=== PATIENT | female | born 1990 | race Caucasian/White ===

== ENCOUNTER 2017-07-09 19:02 | Emergency (ER) | payer OTHER ==
[~2017-07-09] VITALS: Ht 172.7 cm; Wt 158.8 kg
[~2017-07-09 19:02] MED LIST: AMOX875 PO; Adult Low Dose81 MG PO; BENMENLOZ MT; Bactrim Ds Tab1 EACH PO; CALCA500CH PO; CEPH500 PO; COUMADIN PO; Cleocin HCl300 MG PO; Coumadin5 MG PO; DOC250 PO; DULO30 PO; ELIQUIS5 MG PO; ENOX120I SC; ERGO50000 PO; FAMO20 PO; GABA100 PO; HYDCOR1TO TOP; IMPLANON SQ; Keppra1000 MG PO; LAVAP17G PO; LEVE500 PO; LIDO2L MM; Lamictal100 MG PO; Lovenox40 MG/0.4 SC; MAGCIT300 PO; MORP15ER PO; MORPHINE SULFAT20 MG PO; Mapap500 M1 PO; NEOPOLHCSU RIGHTEAR; Norco 5-325 Ta1 EACH PO; ONDA8 PO; OXYC10ER PO; OXYC5 PO; Percocet 5-3251 EACH PO; RAME8 PO; SENN187 PO; Senna-Gen8.6 MG PO; TOPI100 PO; WARF7.5 PO; Zofran4 MG PO; Zofran8 MG PO; [UNRECOGNIZED DRUG - OTHER] PO; [UNRECOGNIZED DRUG - REMARK]
[2017-07-09] MEDS ORDERED: BUPR75 (20:03)
[2017-07-09] MEDS ORDERED: Metformin HCl850 MG PO (20:04)
[2017-07-09] MEDS ORDERED: Women's Daily1 EACH PO (20:04)
[2018-02-01] MEDS ORDERED: Percocet 5-3251 EACH PO (04:59)
[2018-02-03] MEDS ORDERED: SERT100 PO (17:04)
[2018-02-04] MEDS ORDERED: METPHE10 PO (11:56)
[2018-02-04] MEDS ORDERED: HYDHCL25 PO (11:56)
[2018-02-04] MEDS ORDERED: CLON.1 PO (12:05)
[2018-02-04] MEDS ORDERED: PRAZ1 PO (12:06)
[2018-02-07] MEDS ORDERED: DOCU100 PO (10:05)
== END 2017-07-09 22:21 | disposition home or self-care (01) ==
LOC: ER 19:02
DX: S30.0XXA Contusion of lower back and pelvis, initial encounter (principal); M53.3 Sacrococcygeal disorders, not elsewhere classified; F32.9 Major depressive disorder, single episode, unspecified; Z88.8 Allergy status to other drugs, medicaments and biological substances; Z79.899 Other long term (current) drug therapy; W01.0XXA Fall on same level from slipping, tripping and stumbling without subsequent striking against object, initial encounter
CPT/HCPCS: 72170; 72220; 99283

== ENCOUNTER 2018-01-18 23:51 | Emergency (ER) | payer OTHER ==
[~2018-01-18] VITALS: Ht 172.7 cm; Wt 155.6 kg
[~2018-01-18 23:51] MED LIST changes: +BUPR75; +METF500; +Women's Daily1 EACH PO
[2018-01-19 00:41] LABS: BASOPHILS ABSOLUTE AUTO 0.05 K/mm3 (0.00-0.23); BASOPHILS PERCENT AUTO 0 % (0-2); EOSINOPHILS ABSOLUTE AUTO 0.37 K/mm3 (0.00-0.68); EOSINOPHILS PERCENT AUTO 2 % (0-6); Hematocrit 40.5 % (33.0-51.0); Hemoglobin 12.8 g/dL (11.5-16.0); IMMATURE GRAN ABSOLUTE AUTO 0.08 K/mm3 (0.00-0.10); IMMATURE GRAN PERCENT AUTO 0 % (0-1); LYMPHOCYTES PERCENT AUTO 16 % (21-46); MONOCYTES ABSOLUTE AUTO 0.95 K/mm3 (0.16-1.47); MONOCYTES PERCENT AUTO 5 % (4-13); Mean Corpuscular HGB 26.4 pg (26.0-34.0); Mean Corpuscular HGB Conc 31.6 g/dL (31.5-36.5); Mean Corpuscular Volume 84 fL (80-100); Mean Platelet Volume 8.8 fL (9.1-12.4); NEUTROPHILS ABSOLUTE AUTO 14.12 K/mm3 (1.96-9.15); NEUTROPHILS PERCENT AUTO 76 % (41-73); Platelet Count 328 K/mm3 (150-400); RDW Coefficient Variation 14.7 % (11.7-14.2); RDW Standard Deviation 44.8 fL (35.1-46.3); Red Blood Cell Count 4.85 M/mm3 (3.80-5.20); White Blood Cell Count 18.57 K/mm3 (4.00-11.30)
[2018-01-19 00:55] LABS: International Normalized Ratio 0.91; Prothrombin Time Results 9.4 Sec (9.7-11.5)
[2018-01-19 01:01] LABS: Alanine Aminotransfer (ALT/SGP 25 U/L (12-78); Albumin, Blood 3.4 g/dL (3.4-5.0); Albumin/Globulin Ratio 0.9 (0.8-1.8); Alk Phos 106 U/L (50-136); Anion Gap 10 mmol/L (6-16); Aspartate Aminotrans (AST/SGOT 13 U/L (12-37); Bilirubin, Total 0.2 mg/dL (0.1-1.0); Blood Urea Nitrogen 13 mg/dL (8-24); Bun/Creatinine Ratio 18.4 (12.0-20.0); CO2, Blood 23 mmol/L (21-32); Calcium, Blood 8.6 mg/dL (8.5-10.1); Chloride, Blood 107 mmol/L (98-108); Creatinine, Blood 0.71 mg/dL (0.40-1.00); Globulin, Blood 3.9 g/dL (2.2-4.0); Glomerular Filtration Rate >60 (60-); Glucose, Blood 166 mg/dL (70-99); Potassium, Blood 3.8 mmol/L (3.5-5.5); Sodium, Blood 140 mmol/L (136-145); Total Protein, Blood 7.3 g/dL (6.4-8.2)
[2018-01-19 05:25] LABS: Source, Urine Catheter
[2018-01-19 05:32] LABS: Bilirubin, Urine Neg (Neg); Blood, Urine 5+ (Neg); Glucose Qualitative, Urine Neg (Neg); Ketones, Urine Neg (Neg); Leukocyte Esterase, Urine 1+ (Neg); Nitrite, Urine Neg (Neg); Protein, Urine Neg (Neg); Specific Gravity, Urine 1.015 (1.003-1.022); Urobilinogen, Urine NORM (Normal)
[2018-01-19 05:44] LABS: Amorphous Light (0-Heavy); Appearance, Urine Hazy (Clear); Bacteria Few /hpf; Color, Urine Yellow (P-Yellow); Red Blood Cells, Urine 50-100 /hpf (0-2); Squamous Epithelial Cells Few /hpf (Few)
[2018-01-19] MEDS ORDERED: Percocet 10-321 EACH PO (08:01)
[2018-01-19] MEDS ORDERED: Flomax0.4 MG PO (08:01)
== END 2018-01-19 08:20 | disposition home or self-care (01) ==
LOC: ER 23:51
PROVIDERS: Emergency Medicine
DX: R10.30 Lower abdominal pain, unspecified (principal); R06.02 Shortness of breath; R31.9 Hematuria, unspecified; D72.829 Elevated white blood cell count, unspecified; F17.210 Nicotine dependence, cigarettes, uncomplicated; Z88.7 Allergy status to serum and vaccine; Z88.8 Allergy status to other drugs, medicaments and biological substances; Z79.899 Other long term (current) drug therapy
CPT/HCPCS: 36415; 51798; 71046; 74176; 80053; 81001; 81025; 83690; 84484; 85025; 85379; 85610; 85730; 87086; 93005; 93010; 96361; 96374; 96375; 96376; 99284-25; J1170; J1885; J2060; J2405; J2550; J7030; P9612

== ENCOUNTER 2018-05-01 12:35 | Emergency (ER) | payer OTHER ==
[~2018-05-01] VITALS: Ht 172.7 cm; Wt 163.3 kg
[~2018-05-01 12:35] MED LIST changes: +CLON.1 PO; +DOCU100 PO; +Flomax0.4 MG PO; +HYDHCL25 PO; -METF500; +METPHE10 PO; +Metformin HCl850 MG PO; +PRAZ1 PO; +Percocet 10-321 EACH PO; +SERT100 PO
[2018-05-01 15:29] LABS: BASOPHILS ABSOLUTE AUTO 0.04 K/mm3 (0.00-0.23); BASOPHILS PERCENT AUTO 0 % (0-2); EOSINOPHILS ABSOLUTE AUTO 0.18 K/mm3 (0.00-0.68); EOSINOPHILS PERCENT AUTO 2 % (0-6); Hematocrit 42.3 % (33.0-51.0); Hemoglobin 13.1 g/dL (11.5-16.0); IMMATURE GRAN ABSOLUTE AUTO 0.02 K/mm3 (0.00-0.10); IMMATURE GRAN PERCENT AUTO 0 % (0-1); LYMPHOCYTES ABSOLUTE AUTO 2.31 K/mm3 (0.84-5.20); LYMPHOCYTES PERCENT AUTO 21 % (21-46); MONOCYTES ABSOLUTE AUTO 0.49 K/mm3 (0.16-1.47); MONOCYTES PERCENT AUTO 5 % (4-13); Mean Corpuscular HGB 25.7 pg (26.0-34.0); Mean Corpuscular Volume 83 fL (80-100); Mean Platelet Volume 9.5 fL (9.1-12.4); NEUTROPHILS ABSOLUTE AUTO 7.78 K/mm3 (1.96-9.15); NEUTROPHILS PERCENT AUTO 72 % (41-73); Platelet Count 361 K/mm3 (150-400); RDW Coefficient Variation 14.7 % (11.7-14.2); RDW Standard Deviation 44.1 fL (35.1-46.3); White Blood Cell Count 10.82 K/mm3 (4.00-11.30)
[2018-05-01 15:46] LABS: Alanine Aminotransfer (ALT/SGP 53 U/L (12-78); Albumin, Blood 3.6 g/dL (3.4-5.0); Alk Phos 100 U/L (50-136); Anion Gap 8 mmol/L (6-16); Aspartate Aminotrans (AST/SGOT 26 U/L (12-37); Bilirubin, Total 0.2 mg/dL (0.1-1.0); Blood Urea Nitrogen 7 mg/dL (8-24); Bun/Creatinine Ratio 9.3 (12.0-20.0); CO2, Blood 25 mmol/L (21-32); Chloride, Blood 110 mmol/L (98-108); Creatinine, Blood 0.76 mg/dL (0.40-1.00); Globulin, Blood 3.7 g/dL (2.2-4.0); Glomerular Filtration Rate >60 (60-); Glucose, Blood 138 mg/dL (70-99); Potassium, Blood 3.7 mmol/L (3.5-5.5); Sodium, Blood 143 mmol/L (136-145); Total Protein, Blood 7.3 g/dL (6.4-8.2)
[2018-05-01 16:23] LABS: Source, Urine Clean Catch
[2018-05-01 16:27] LABS: Bilirubin, Urine Neg (Neg); Blood, Urine 5+ (Neg); Glucose Qualitative, Urine Neg (Neg); Ketones, Urine Neg (Neg); Leukocyte Esterase, Urine 2+ (Neg); Nitrite, Urine Neg (Neg); Protein, Urine 1+ (Neg); Specific Gravity, Urine 1.025 (1.003-1.022); Urobilinogen, Urine 1+ (Normal)
[2018-05-01 17:04] LABS: Appearance, Urine Clear (Clear); Color, Urine Yellow (P-Yellow)
[2018-05-01 17:05] LABS: Calcium Oxalate Crystals Few /hpf; Squamous Epithelial Cells Few /hpf (Few)
[2018-05-01 17:06] LABS: Bacteria Mod /hpf; Red Blood Cells, Urine 25-50 /hpf (0-2)
[2018-05-01] MEDS ORDERED: Norco 5-325 Ta1 EACH PO (17:32)
[2018-05-01] MEDS ORDERED: COMPAZINE10 MG PO (17:32)
== END 2018-05-01 17:49 | disposition home or self-care (01) ==
LOC: ER 12:35
PROVIDERS: Emergency Medicine
DX: N13.2 Hydronephrosis with renal and ureteral calculous obstruction (principal); K21.9 Gastro-esophageal reflux disease without esophagitis; E11.9 Type 2 diabetes mellitus without complications; E66.01 Morbid (severe) obesity due to excess calories; F17.210 Nicotine dependence, cigarettes, uncomplicated; Z79.899 Other long term (current) drug therapy; Z79.84 Long term (current) use of oral hypoglycemic drugs
CPT/HCPCS: 36415; 51798; 74176; 80053; 81001; 81025; 85025; 87086; 96374; 96375; 96376; 99284-25; J1170; J2405

== ENCOUNTER 2018-05-20 19:44 | Emergency (ER) | payer OTHER ==
[~2018-05-20] VITALS: Ht 172.7 cm; Wt 155.4 kg
[~2018-05-20 19:44] MED LIST changes: +COMPAZINE10 MG PO
[2018-05-20] MEDS ORDERED: ERYT1OIN RIGHTEYE (23:19)
== END 2018-05-20 23:27 | disposition home or self-care (01) ==
LOC: ER 19:44
DX: H10.021 Other mucopurulent conjunctivitis, right eye (principal); F32.9 Major depressive disorder, single episode, unspecified; F17.210 Nicotine dependence, cigarettes, uncomplicated; Z79.899 Other long term (current) drug therapy; Z79.01 Long term (current) use of anticoagulants; Z79.84 Long term (current) use of oral hypoglycemic drugs; Z88.8 Allergy status to other drugs, medicaments and biological substances
CPT/HCPCS: 99283

== ENCOUNTER 2018-09-14 03:43 | Emergency (ER) | payer OTHER ==
[~2018-09-14] VITALS: Ht 172.7 cm; Wt 154.2 kg
[~2018-09-14 03:43] MED LIST changes: +ERYT1OIN RIGHTEYE
== END 2018-09-14 04:27 | disposition home or self-care (01) ==
LOC: ER 03:43
DX: F43.22 Adjustment disorder with anxiety (principal); R20.2 Paresthesia of skin; Z88.8 Allergy status to other drugs, medicaments and biological substances; Z88.7 Allergy status to serum and vaccine; Z79.899 Other long term (current) drug therapy; Z79.84 Long term (current) use of oral hypoglycemic drugs; F32.9 Major depressive disorder, single episode, unspecified; F17.210 Nicotine dependence, cigarettes, uncomplicated
CPT/HCPCS: 99283

== ENCOUNTER 2018-09-25 02:11 | Emergency (ER) | payer OTHER ==
[~2018-09-25] VITALS: Ht 172.7 cm; Wt 172.4 kg
[2018-09-25 05:31] LABS: BASOPHILS ABSOLUTE AUTO 0.04 K/mm3 (0.00-0.23); BASOPHILS PERCENT AUTO 0 % (0-2); EOSINOPHILS ABSOLUTE AUTO 0.13 K/mm3 (0.00-0.68); EOSINOPHILS PERCENT AUTO 1 % (0-6); Hematocrit 40.7 % (33.0-51.0); Hemoglobin 13.2 g/dL (11.5-16.0); IMMATURE GRAN ABSOLUTE AUTO 0.03 K/mm3 (0.00-0.10); IMMATURE GRAN PERCENT AUTO 0 % (0-1); LYMPHOCYTES ABSOLUTE AUTO 2.92 K/mm3 (0.84-5.20); LYMPHOCYTES PERCENT AUTO 24 % (21-46); MONOCYTES ABSOLUTE AUTO 0.51 K/mm3 (0.16-1.47); MONOCYTES PERCENT AUTO 4 % (4-13); Mean Corpuscular HGB 26.6 pg (26.0-34.0); Mean Corpuscular HGB Conc 32.4 g/dL (31.5-36.5); Mean Corpuscular Volume 82 fL (80-100); Mean Platelet Volume 8.9 fL (9.1-12.4); NEUTROPHILS ABSOLUTE AUTO 8.59 K/mm3 (1.96-9.15); NEUTROPHILS PERCENT AUTO 70 % (41-73); Platelet Count 287 K/mm3 (150-400); RDW Coefficient Variation 14.1 % (11.7-14.2); RDW Standard Deviation 41.4 fL (35.1-46.3); Red Blood Cell Count 4.97 M/mm3 (3.80-5.20); White Blood Cell Count 12.22 K/mm3 (4.00-11.30)
[2018-09-25 05:48] LABS: Alanine Aminotransfer (ALT/SGP 38 U/L (12-78); Albumin, Blood 3.6 g/dL (3.4-5.0); Alk Phos 98 U/L (50-136); Anion Gap 6 mmol/L (6-16); Aspartate Aminotrans (AST/SGOT 25 U/L (12-37); Bilirubin, Total 0.3 mg/dL (0.1-1.0); Blood Urea Nitrogen 5 mg/dL (8-24); Bun/Creatinine Ratio 7.9 (12.0-20.0); CO2, Blood 27 mmol/L (21-32); Calcium, Blood 8.7 mg/dL (8.5-10.1); Chloride, Blood 111 mmol/L (98-108); Creatinine, Blood 0.63 mg/dL (0.40-1.00); Globulin, Blood 3.7 g/dL (2.2-4.0); Glomerular Filtration Rate >60 (60-); Glucose, Blood 105 mg/dL (70-99); Sodium, Blood 144 mmol/L (136-145); Total Protein, Blood 7.3 g/dL (6.4-8.2)
== END 2018-09-25 06:29 | disposition home or self-care (01) ==
LOC: ER 02:11
PROVIDERS: Emergency Medicine
DX: K92.0 Hematemesis (principal); R52 Pain, unspecified; F41.9 Anxiety disorder, unspecified; F32.9 Major depressive disorder, single episode, unspecified; F17.210 Nicotine dependence, cigarettes, uncomplicated; Z88.7 Allergy status to serum and vaccine; Z88.8 Allergy status to other drugs, medicaments and biological substances; Z79.84 Long term (current) use of oral hypoglycemic drugs; Z79.899 Other long term (current) drug therapy
CPT/HCPCS: 36415; 80053; 82272; 83690; 85025; 96361; 96374; 96375; 99284-25; A9270; J1170; J2405; J7120

== ENCOUNTER → 2019-09-04 | Outpatient (CLI) | payer OTHER | END | disposition home or self-care (01) | LOC: LAB SHORT 16:39 → LAB 16:39 | PROVIDERS: Obstetrics & Gynecology | DX: Z01.419 Encounter for gynecological examination (general) (routine) without abnormal findings (principal) | CPT/HCPCS: G0123 ==

== ENCOUNTER 2021-10-08 23:08 | Emergency (ER) | payer OTHER ==
[~2021-10-08] VITALS: Ht 172.7 cm; Wt 145.2 kg
== END 2021-10-09 03:45 | disposition home or self-care (01) ==
LOC: ER 23:08
DX: R42 Dizziness and giddiness (principal); U07.1 COVID-19; R04.0 Epistaxis; F17.210 Nicotine dependence, cigarettes, uncomplicated; W18.30XA Fall on same level, unspecified, initial encounter; Z88.8 Allergy status to other drugs, medicaments and biological substances; Z79.899 Other long term (current) drug therapy; Z79.4 Long term (current) use of insulin; Z79.01 Long term (current) use of anticoagulants
CPT/HCPCS: 70450; 71045; 93005; 93010; 99285-25

== ENCOUNTER 2023-02-20 17:33 | Inpatient (IN) | payer OTHER ==
[~2023-02-20] VITALS: Ht 172.7 cm; Wt 148.2 kg
[~2023-02-20 17:33] MED LIST changes: -AMPDEX10CR PO; -CEFP200 PO; -LACT PO
[2023-02-20 18:20] LABS: BASOPHILS ABSOLUTE AUTO 0.08 K/mm3 (0.00-0.23); BASOPHILS PERCENT AUTO 0 % (0-2); EOSINOPHILS ABSOLUTE AUTO 0.04 K/mm3 (0.00-0.68); EOSINOPHILS PERCENT AUTO 0 % (0-6); Hematocrit 38.2 % (33.0-51.0); Hemoglobin 13.2 g/dL (11.5-16.0); IMMATURE GRAN ABSOLUTE AUTO 0.11 K/mm3 (0.00-0.10); IMMATURE GRAN PERCENT AUTO 1 % (0-1); LYMPHOCYTES ABSOLUTE AUTO 1.93 K/mm3 (0.84-5.20); LYMPHOCYTES PERCENT AUTO 9 % (21-46); MONOCYTES PERCENT AUTO 10 % (4-13); Mean Corpuscular HGB 28.8 pg (26.0-34.0); Mean Corpuscular HGB Conc 34.6 g/dL (31.5-36.5); Mean Corpuscular Volume 83 fL (80-100); Mean Platelet Volume 9.2 fL (9.1-12.4); NEUTROPHILS ABSOLUTE AUTO 17.91 K/mm3 (1.96-9.15); NEUTROPHILS PERCENT AUTO 80 % (41-73); Platelet Count 310 K/mm3 (150-400); RDW Coefficient Variation 12.7 % (11.7-14.2); RDW Standard Deviation 38.5 fL (35.1-46.3); Red Blood Cell Count 4.59 M/mm3 (3.80-5.20); White Blood Cell Count 22.27 K/mm3 (4.00-11.30)
[2023-02-20 18:28] LABS: Albumin, Blood 3.2 g/dL (3.4-5.0); Albumin/Globulin Ratio 0.7 (0.8-1.8); Bilirubin, Total 0.8 mg/dL (0.1-1.0); Bun/Creatinine Ratio 10.1 (12.0-20.0); Calcium, Blood 9.2 mg/dL (8.5-10.1); Creatinine, Blood 0.79 mg/dL (0.40-1.00); Globulin, Blood 4.5 g/dL (2.2-4.0); Potassium, Blood 3.9 mmol/L (3.5-5.5); Total Protein, Blood 7.7 g/dL (6.4-8.2)
[2023-02-20 20:09] LABS: Source, Urine Clean Catch
[2023-02-20 20:17] LABS: Bilirubin, Urine Neg (Neg); Blood, Urine 5+ (Neg); Glucose Qualitative, Urine Neg (Neg); Ketones, Urine 2+ (Neg); Leukocyte Esterase, Urine 3+ (Neg); Nitrite, Urine Pos (Neg); Protein, Urine 3+ (Neg); Urobilinogen, Urine NORM (Normal)
[2023-02-20] MEDS ORDERED: AMPDEX10CR PO (20:24)
[2023-02-20 20:50] LABS: Appearance, Urine Cloudy (Clear); Color, Urine Yellow (P-Yellow)
[2023-02-20 20:57] LABS: White Blood Cells, Urine TNTC /hpf (0-5)
[2023-02-20 20:58] LABS: Amorphous Light (0-Heavy); Bacteria Many /hpf; Red Blood Cells, Urine 0-2 /hpf (0-2); Squamous Epithelial Cells Rare /hpf (Few)
[2023-02-20 22:25] VITALS: BP 112/87
--- NOTE | 2023-02-20 22:50 | NUR ---
ADMIT NOTE LATE ENTRY PT ADMITED TO MEDICAL FLOOR VIA WC AND AMBULATED TO HOSPITAL BED. ORIENTED TO ROOM AND CALL LIGHT. EDUCATED ON FIRE SAFETY.
--- NOTE | 2023-02-21 01:11 | NUR ---
PT HAD AN EPISODE OF VOMITING DARK COLERED VOMIT. SENT SAMPLE TO LAB
--- NOTE | 2023-02-21 01:14 | NUR ---
CALLED HOSPITALIST INFORMED HIM ABOUT GASTRIC HEMOCCULT RESULTS BEING POSITIVE, AND ABOUT THE PATIENT BEING ON ELIQUIS DUE TO HER SYNDROME. NO NEW ORDERS AT THIS TIME
[2023-02-21 02:15] VITALS: BP 100/48
[2023-02-21 05:09] LABS: Hematocrit 29.2 % (33.0-51.0); Hemoglobin 10.5 g/dL (11.5-16.0); Mean Corpuscular HGB 29.2 pg (26.0-34.0); Mean Corpuscular Volume 81 fL (80-100); Mean Platelet Volume 9.3 fL (9.1-12.4); Platelet Count 224 K/mm3 (150-400); RDW Coefficient Variation 12.8 % (11.7-14.2); Red Blood Cell Count 3.59 M/mm3 (3.80-5.20); White Blood Cell Count 15.57 K/mm3 (4.00-11.30)
[2023-02-21 05:14] LABS: BASOPHILS PERCENT AUTO 0 % (0-2); EOSINOPHILS PERCENT AUTO 1 % (0-6); IMMATURE GRAN PERCENT AUTO 1 % (0-1); LYMPHOCYTES ABSOLUTE AUTO 2.42 K/mm3 (0.84-5.20); LYMPHOCYTES PERCENT AUTO 16 % (21-46); MONOCYTES ABSOLUTE AUTO 1.85 K/mm3 (0.16-1.47); MONOCYTES PERCENT AUTO 12 % (4-13); NEUTROPHILS ABSOLUTE AUTO 10.92 K/mm3 (1.96-9.15); NEUTROPHILS PERCENT AUTO 70 % (41-73)
[2023-02-21 05:15] LABS: BASOPHILS ABSOLUTE AUTO 0.05 K/mm3 (0.00-0.23); EOSINOPHILS ABSOLUTE AUTO 0.09 K/mm3 (0.00-0.68)
[2023-02-21 05:37] LABS: Creatinine, Blood 0.87 mg/dL (0.40-1.00); Potassium, Blood 3.6 mmol/L (3.5-5.5)
--- NOTE | 2023-02-21 05:56 | NUR ---
SHIFT SUMMARY PT A&O X4, CALM AND COOPERATIVE WITH CARE. PT TEARFUL AT TIMES D/T PAIN AND N/V. MEDICATED PER EMAR. PT HAD EPISODE OF EMESIS THAT WAS DARK IN COLOR. SENT A SAMPLE FOR OCCULT TESTING TO LAB. PT IS INDEPENDENT TO BATHROOM. NS RUNNING AT 125 ML/HR. PT CALLS APPROPRIATELY. BED KEPT IN LOWEST POSITION WITH CALL LIGHT WITHIN REACH.
[2023-02-21 07:17] VITALS: BP 121/82
[2023-02-21 09:51] LABS: Anti-Xa UFH, PHA Monitoring 0.38 IU/mL; International Normalized Ratio 1.13; Prothrombin Time Results 11.8 Sec (9.7-11.5)
[2023-02-21 10:25] LABS: Hemoglobin 10.8 g/dL (11.5-16.0); Mean Corpuscular HGB 28.7 pg (26.0-34.0); Mean Corpuscular HGB Conc 33.8 g/dL (31.5-36.5); Mean Corpuscular Volume 85 fL (80-100); Mean Platelet Volume 9.3 fL (9.1-12.4); Platelet Count 250 K/mm3 (150-400); RDW Coefficient Variation 13.1 % (11.7-14.2); RDW Standard Deviation 40.2 fL (35.1-46.3); Red Blood Cell Count 3.76 M/mm3 (3.80-5.20); White Blood Cell Count 15.64 K/mm3 (4.00-11.30)
[2023-02-21 15:43] VITALS: BP 131/69
--- NOTE | 2023-02-21 18:13 | NUR ---
DAYSHIFT SUMMARY Patient alert & oriented x4. Reporting anxiety & severe flank pain. Patient took morning meds, but vomited soon after. Zofran & Reglan effective for N/V. Tramadol & IV MS given for pain. Continued NS IV fluids. One small episode of emesis this AM, clear color. No s/sx of bleeding noted this shift. Vitals stable. Afebrile, VSS. Will continue plan of care.
[2023-02-21 19:36] VITALS: BP 106/75
[2023-02-22 02:03] VITALS: BP 146/85
--- NOTE | 2023-02-22 04:28 | NUR ---
SHIFT SUMMARY. PRIMARY GOAL OF SHIFT THUS FAR HAS BEEN PAIN AND NAUSEA MANAGEMENT. PAIN AND NAUSEA HAVE BOTH BEEN ADEQUATELY MANAGED ON PRN MEDICATIONS. RAC IV EARLY IN SHIFT. POWERGLIDE INSERTED INTO CRESENCIO EARLY IN SHIFT BY PCU CHARGE FELY SUMMERS. HAS BEEN INFUSING FLUIDS THROUGHOUT SHIFT SINCE WITHOUT DIFFICULTY. CALLS APPROPRIATELY FOR ASSISTANCE, ABLE TO MAKE NEEDS KNOWN. INDEPENDENT WITHIN ROOM, SATTING WELL ON ROOM AIR. BED LOCKED IN LOWEST POSITION. CALL LIGHT LEFT WITHIN REACH.
[2023-02-22 07:42] VITALS: BP 123/92
[2023-02-22 08:44] LABS: BASOPHILS ABSOLUTE AUTO 0.04 K/mm3 (0.00-0.23); BASOPHILS PERCENT AUTO 1 % (0-2); EOSINOPHILS PERCENT AUTO 1 % (0-6); Hematocrit 21.8 % (33.0-51.0); Hemoglobin 7.4 g/dL (11.5-16.0); IMMATURE GRAN ABSOLUTE AUTO 0.03 K/mm3 (0.00-0.10); IMMATURE GRAN PERCENT AUTO 0 % (0-1); LYMPHOCYTES ABSOLUTE AUTO 1.32 K/mm3 (0.84-5.20); LYMPHOCYTES PERCENT AUTO 19 % (21-46); MONOCYTES ABSOLUTE AUTO 0.81 K/mm3 (0.16-1.47); MONOCYTES PERCENT AUTO 11 % (4-13); Mean Corpuscular HGB 28.7 pg (26.0-34.0); Mean Corpuscular HGB Conc 33.9 g/dL (31.5-36.5); Mean Corpuscular Volume 85 fL (80-100); Mean Platelet Volume 9.3 fL (9.1-12.4); NEUTROPHILS ABSOLUTE AUTO 4.78 K/mm3 (1.96-9.15); NEUTROPHILS PERCENT AUTO 68 % (41-73); Platelet Count 170 K/mm3 (150-400); RDW Coefficient Variation 12.8 % (11.7-14.2); RDW Standard Deviation 38.8 fL (35.1-46.3); Red Blood Cell Count 2.58 M/mm3 (3.80-5.20); White Blood Cell Count 7.08 K/mm3 (4.00-11.30)
[2023-02-22 10:38] LABS: Albumin, Blood 2.3 g/dL (3.4-5.0); Albumin/Globulin Ratio 0.6 (0.8-1.8); Bilirubin, Total 0.4 mg/dL (0.1-1.0); Bun/Creatinine Ratio 4.1 (12.0-20.0); Calcium, Blood 7.6 mg/dL (8.5-10.1); Creatinine, Blood 0.73 mg/dL (0.40-1.00); Globulin, Blood 3.8 g/dL (2.2-4.0); Potassium, Blood 3.4 mmol/L (3.5-5.5); Total Protein, Blood 6.1 g/dL (6.4-8.2)
[2023-02-22 14:35] LABS: Hematocrit 30.2 % (33.0-51.0); Hemoglobin 10.2 g/dL (11.5-16.0)
[2023-02-22 15:31] VITALS: BP 142/93
--- NOTE | 2023-02-22 17:57 | NUR ---
SHIFT SUMMARY PT IS ALERT AND ORIENTED X4. SHE HAS NOT SLEPT IN ATLEAST TWO DAYS. OFFERED QUIET TIME, DARKEND ROOM, ATTEMPTING TO CONTROL PAIN, NO RELIEF. SHE APPEARS TO HAVE A FLATTEND AFFECT COMPARED TO THIS MORNING. SHE IS TEARFUL AT TIMES. SHE HAS NOT WANTED TO DISCUSS HER NEEDS FURTHER WITH ME. PAIN MEDICAITON GIVEN PER EMAR. ACCEPTABLE PAIN LEVEL 3/10. NAUSEA HAS BEEN TREATED PER EMAR. NO EMESIS THIS SHIFT. NO ACUTE CHANGES. INDEPENDENT IN THE ROOM. PT ABLE TO MAKE NEEDS KNOWN. CALL LIGHT IS IN REACH.
[2023-02-22 20:53] VITALS: BP 134/81
[2023-02-23 03:16] VITALS: BP 123/77
[2023-02-23 05:41] LABS: BASOPHILS ABSOLUTE AUTO 0.05 K/mm3 (0.00-0.23); BASOPHILS PERCENT AUTO 1 % (0-2); EOSINOPHILS ABSOLUTE AUTO 0.21 K/mm3 (0.00-0.68); EOSINOPHILS PERCENT AUTO 3 % (0-6); Hematocrit 32.2 % (33.0-51.0); Hemoglobin 11.2 g/dL (11.5-16.0); IMMATURE GRAN ABSOLUTE AUTO 0.02 K/mm3 (0.00-0.10); IMMATURE GRAN PERCENT AUTO 0 % (0-1); LYMPHOCYTES PERCENT AUTO 25 % (21-46); MONOCYTES ABSOLUTE AUTO 0.61 K/mm3 (0.16-1.47); MONOCYTES PERCENT AUTO 9 % (4-13); Mean Corpuscular HGB 28.9 pg (26.0-34.0); Mean Corpuscular HGB Conc 34.8 g/dL (31.5-36.5); Mean Corpuscular Volume 83 fL (80-100); Mean Platelet Volume 9.6 fL (9.1-12.4); NEUTROPHILS ABSOLUTE AUTO 4.48 K/mm3 (1.96-9.15); NEUTROPHILS PERCENT AUTO 63 % (41-73); NRBC ABSOLUTE 0.02 K/mm3 (0.00-0.02); NRBC Auto 0.3 /100 WBC (0.0-0.2); Platelet Count 262 K/mm3 (150-400); RDW Coefficient Variation 12.9 % (11.7-14.2); RDW Standard Deviation 38.9 fL (35.1-46.3); Red Blood Cell Count 3.88 M/mm3 (3.80-5.20); White Blood Cell Count 7.17 K/mm3 (4.00-11.30)
--- NOTE | 2023-02-23 06:05 | NUR ---
SHIFT SUMMARY PT A&O X4, COOPERATIVE WITH CARE. SOME NAUSEA THIS SHIFT WITHOUT VOMITING--MEDICATED PER EMAR. PT IS CONTINENT AND INDEPENDENT IN ROOM. PT REPORTS FLANK PAIN--MEDICATED PER EMAR. PROVIDED HEAT THERAPY WITH K-PAD. FRIEND CAME TO VISIT T/O THE NIGHT. CALLS APPROPRIATELY. BED KEPT IN LOWEST POSITION WITH CALL LIGHT WITHIN REACH.
[2023-02-23 06:18] LABS: Bun/Creatinine Ratio 4.2 (12.0-20.0); Calcium, Blood 8.1 mg/dL (8.5-10.1); Creatinine, Blood 0.71 mg/dL (0.40-1.00)
[2023-02-23 07:43] VITALS: BP 129/79
[2023-02-23] MEDS ORDERED: LACT PO (12:23)
[2023-02-23] MEDS ORDERED: CEFP200 PO (12:23)
--- NOTE | 2023-02-23 14:30 | NUR ---
DISCHARGE SUMMARY ALERT, ORIENTED, PLEASANT, COOPERATIVE. INDEPENDENT IN ROOM. ROOM AIR. NO TELE. REPORTS SOME NAUSEA JINNY, 1 EPISODE EMESIS, MEDICATED PER EMAR. RATES PAIN TO LEFT FLANK 3/10, MEDICATED FOR PAIN. NOTED SWELING/LUMP TO LEFT UPPER ARM, BROUGHT TO HOSP ATTENTION. US ORDERED. BENIGN EDEMA, NO MASS, NO CLOT, NO TUMOR. VOIDING WELL. DISCHARGE ORDER GIVEN. DISCHARGE EDUCATION GIVEN ON NEW RX, FOLLOW UP, AND SIGNS/SYMPTOMS TO RETURN TO ER. PATIENT LEFT UNIT AT 1425 AMBULATING AFTER DECLINING WHEELCHAIR WITH FAMILY MEMBER FOR HOME. PG LLOYD'D WNL.
== END 2023-02-23 14:23 | disposition home or self-care (01) | DRG 872 ==
LOC: ER 17:33 → MEDS 21:56
PROVIDERS: Family Medicine; Hospitalist; Nurse Practitioner Acute Care; Physician Assistant; ADMIT Student in an Organized Health Care Education/Training Program
DX: A41.9 Sepsis, unspecified organism (principal); N10 Acute pyelonephritis; K92.0 Hematemesis; D68.61 Antiphospholipid syndrome; E87.1 Hypo-osmolality and hyponatremia; Z68.42 Body mass index [BMI] 45.0-49.9, adult; I82.612 Acute embolism and thrombosis of superficial veins of left upper extremity; F90.9 Attention-deficit hyperactivity disorder, unspecified type; F17.210 Nicotine dependence, cigarettes, uncomplicated; E66.01 Morbid (severe) obesity due to excess calories; B96.20 Unspecified Escherichia coli [E. coli] as the cause of diseases classified elsewhere; K21.9 Gastro-esophageal reflux disease without esophagitis; E86.1 Hypovolemia; K22.70 Barrett's esophagus without dysplasia; F32.A Depression, unspecified; Z86.718 Personal history of other venous thrombosis and embolism; Z86.711 Personal history of pulmonary embolism; Z98.890 Other specified postprocedural states; Z79.01 Long term (current) use of anticoagulants; Z88.8 Allergy status to other drugs, medicaments and biological substances; Z71.6 Tobacco abuse counseling; Z23 Encounter for immunization
CPT/HCPCS: 36415; 74176; 76882; 80048; 80053; 81001; 81025; 82271; 83036; 83605; 83690; 85014; 85018; 85025; 85027; 85520; 85610; 85730; 87040; 87077; 87086; 87186; 93005; 93010; 93971; 96361; 96365; 96375; 96376; 99285-25; A9270; C1751; J0696; J1170; J1790; J1885; J2270; J2405; J2765; J7030; Q2036

== ENCOUNTER → 2023-02-20 | Outpatient (CLI) | payer OTHER ==
[~2023-02-20] MED LIST changes: +AMPDEX10CR PO; +CEFP200 PO; +LACT PO
== END | disposition home or self-care (01) ==
LOC: LAB SHORT 16:22 → LAB 16:22
DX: R50.9 Fever, unspecified (principal); R10.9 Unspecified abdominal pain
CPT/HCPCS: 87077; 87086; 87186

== ENCOUNTER → 2023-03-08 | Outpatient (CLI) | payer OTHER ==
[~2023-03-08] MED LIST changes: +AMPDEX10CR PO; +CEFP200 PO; +LACT PO
[2023-03-08 16:01] LABS: Adenovirus F 40/41 Not Detected (NOT DETECT); Astrovirus Not Detected (NOT DETECT); Campylobacter Sp Not Detected (NOT DETECT); Cryptosporidium Not Detected (NOT DETECT); Cyclospora Cayetanensis Not Detected (NOT DETECT); E. Coli O157 Not Detected (NOT DETECT); Entamoeba Histolytica Not Detected (NOT DETECT); Enteroaggregative E. coli-EAEC Not Detected (NOT DETECT); Enteropathogenic E. coli-EPEC Not Detected (NOT DETECT); Enterotoxigenic E. coli-ETEC Not Detected (NOT DETECT); Giardia Lamblia Not Detected (NOT DETECT); Norovirus GI/GII Not Detected (NOT DETECT); Plesiomonas Shigelloides Not Detected (NOT DETECT); Rotavirus A Not Detected (NOT DETECT); Salmonella Sp Not Detected (NOT DETECT); Sapovirus Not Detected (NOT DETECT); Shiga Toxin-prod E. coli-STEC Not Detected (NOT DETECT); Shigella/Enteroin E. coli-EIEC Not Detected (NOT DETECT); Vibrio Cholerae Not Detected (NOT DETECT); Vibrio Sp Not Detected (NOT DETECT); Yersinia Enterocolitica Not Detected (NOT DETECT)
== END | disposition home or self-care (01) ==
LOC: LAB SHORT 11:14 → LAB 11:14
PROVIDERS: Nurse Practitioner Family
DX: Z00.00 Encounter for general adult medical examination without abnormal findings (principal)
CPT/HCPCS: 87507

== ENCOUNTER → 2024-08-28 | Outpatient (CLI) | payer OTHER | LOC: LAB SHORT 08:32 → LAB 08:32 | DX: R35.0 Frequency of micturition (principal) | CPT/HCPCS: 87086 ==